=== PATIENT | male | born 1965 | race Caucasian/White ===

== ENCOUNTER 2017-07-10 15:25 | Emergency (ER) | payer OTHER ==
[~2017-07-10] VITALS: Ht 177.8 cm; Wt 97.8 kg
[2017-07-10] MEDS ORDERED: FLEXERIL10 MG PO (17:39)
[2017-07-10 18:15] VITALS: BP 129/73
== END 2017-07-10 18:16 | disposition home or self-care (01) ==
LOC: EME 15:25
DX: S16.1XXA Strain of muscle, fascia and tendon at neck level, initial encounter (principal); S29.012A Strain of muscle and tendon of back wall of thorax, initial encounter; V00.311A Fall from snowboard, initial encounter; Y93.23 Activity, snow (alpine) (downhill) skiing, snowboarding, sledding, tobogganing and snow tubing
CPT/HCPCS: 70450; 72125; 99281; 99284